=== PATIENT | male | born 1990 | race Caucasian/White ===

== ENCOUNTER 2020-02-01 22:29 | Emergency (ER) | payer BC, SELFPAY ==
[2020-02-01 22:31] VITALS: BP 147/86; PULSE 79; RESP 16; TEMP 37.1; O2SAT 100
--- NOTE | 2020-02-01 22:54 | ED.GENADULT ---
HPI - General Adult General Chief complaint: Skin/Abscess/Foreign Body Stated complaint: poison halle Time Seen by Provider: 02/01/20 22:34 Source: RN notes reviewed History of Present Illness HPI narrative: Patient presents emergency department from home for rash. Patient states that Wednesday he was outside in his backyard pulling weeds. He states he was wearing gloves but was wearing a T-shirt states his neighbor came over and made him aware that the wheeze that he was pulling was all poison halle. He states he began to develop a rash that night with rash on his bilateral forearms up to his shirt line as well as a small area on his right torso and his left ankle. He states that his arms were the worst and has been using steroid cream as well as calamine lotion with no relief. He denies any swelling of lips or tongue shortness of breath or any other symptoms Related Data Home Medications Medication Instructions Recorded Confirmed No Home Medications 02/01/20 02/01/20 Allergies Allergy/AdvReac Type Severity Reaction Status Date / Time minocycline Allergy Rash Verified 02/01/20 22:40 Review of Systems Review of Systems: Narrative: Gen.: Denies fevers or chills ENT: Denies congestion Respiratory: Denies shortness of breath CV: Denies chest pain GI: Denies abdominal pain nausea, emesis a Musculoskeletal: Denies back pain or muscle pain Neuro: Denies headache or weakness Skin: See HPI Except as documented, all other systems reviewed and negative [facility] Past Medical History Medical History (Updated 02/01/20 @ 22:57 by Praful Gallagher DO) Patient denies significant medical history Social History Social History (Updated 02/01/20 @ 22:56 by Praful Gallagher DO) Smoking status: Never smoker Exam Narrative: Exam Narrative: APPEARANCE: No acute distress, nontoxic, resting in bed EYES: EOMI HEENT: Normocephalic, atraumatic, no swelling of the lips or tongue RESPIRATORY: No respiratory distress MUSCULOSKELETAl: Moves all extremities. No clubbing, cyanosis or edema. NEURO: Awake and alert. Following commands, speech normal, no focal deficits SKIN:: Warm, dry. Erythematous rash with vesicles and weeping over the bilateral forearms extending up into the upper extremities to the shirt line area of erythematous rash over the right lateral torso left lateral neck and left anterior ankle all consistent with contact dermatitis the right forearm does have some increased erythema around this with concern of secondary infection PSYCHIATRIC: Normal affect/mood, Course Course Emergency Course: Discussed with patient results of workup and diagnosis. Discussed need for follow-up with primary care, proper use of medication, and reasons to return to the emergency department. Patient understands and agrees to current treatment plan Vital Signs Vital signs: Vital Signs Temperature 98.7 F 02/01/20 22:31 Pulse Rate 79 02/01/20 22:31 Respiratory Rate 16 02/01/20 22:31 Blood Pressure 147/86 H 02/01/20 22:31 Pulse Oximetry 100 02/01/20 22:31 Temperature 98.7 F 02/01/20 22:31 Pulse Rate 79 02/01/20 22:31 Respiratory Rate 16 02/01/20 22:31 Blood Pressure 147/86 H 02/01/20 22:31 Pulse Oximetry 100 02/01/20 22:31 Medical Decision Making Vital Signs Vital Signs: Vital Signs Temperature 98.7 F 02/01/20 22:31 Pulse Rate 79 02/01/20 22:31 Respiratory Rate 16 02/01/20 22:31 Blood Pressure 147/86 H 02/01/20 22:31 Pulse Oximetry 100 02/01/20 22:31 Temperature 98.7 F 02/01/20 22:31 Pulse Rate 79 02/01/20 22:31 Respiratory Rate 16 02/01/20 22:31 Blood Pressure 147/86 H 02/01/20 22:31 Pulse Oximetry 100 02/01/20 22:31 Discharge Plan Discharge Clinical Impression: Contact dermatitis due to poison halle Patient Disposition: Home, Self-Care Condition: Stable Instructions: Antibiotic Form, Poison Halle (ED) Additional Instructions: Return for worsenin
[2020-02-01] MEDS: predniSONE 20 MG TABLET 60 MG PO (22:55)
[2020-02-01 23:04] VITALS: BP 136/70; PULSE 87; RESP 16; TEMP 36.6; O2SAT 100
== END 2020-02-01 23:05 | disposition home or self-care (01) ==
PROVIDERS: Emergency Provider Emergency Medicine
DX: L25.5 Unspecified contact dermatitis due to plants, except food (principal)
CPT/HCPCS: 99283; J7512